=== PATIENT | female | born 1995 | race Two or more races ===

== ENCOUNTER 2024-05-26 07:15 | Emergency (ER) | payer SELFPAY ==
[2024-05-26 07:30] VITALS: BP 107/74; PULSE 74; RESP 18; O2SAT 97
[2024-05-26 07:39] VITALS: BP 107/74; PULSE 76; RESP 16; TEMP 36.3; O2SAT 98; BMI 24.6
--- NOTE | 2024-05-26 07:43 | ED_ITS ---
HPI - General Adult General Date Seen: 05/26/24 Chief complaint: Chest Pain Stated complaint: chest pain Time Seen by Provider: 05/26/24 07:42 History of Present Illness HPI narrative: History is obtained through a [place] librarian specialist iPad service This is a 29-year-old female with history of cholecystectomy (several years ago, per patient report), but otherwise healthy on no long-term medications. No medication allergies. She was awoken from sleep at about 5:00 a.m. this morning with bad pain affecting her upper abdomen in the epigastrium and right upper quadrant also radiating through the back. She was nauseous and vomited 2 times. Emesis was clear. No bloody or coffee-ground emesis. Bowel movements have been normal. No diarrhea. No black or bloody stools. No fever or chills. No trouble breathing. No palpitations. No recent cough. No recent injuries. No new foods. No clear trigger for the pain. No other similar pains in the past or other recent more mild pains. Her notes that she has a history of gastritis. She did not eat much yesterday during the day and then was very hungry yesterday evening so she lot of food. He wonders if she ate too much food in overfilled her stomach or triggered gastritis. She is not currently on any anti acid medications. Related Data Home Medications ?Medication ?Instructions ?Recorded ?Confirmed acetaminophen 325 mg capsule 650 mg PO Q4-6H PRN 05/26/24 05/26/24 Previous Rx's ?Medication ?Instructions ?Recorded omeprazole 40 mg capsule,delayed 40 mg PO DAILY #30 caps 05/26/24 release Allergies Allergy/AdvReac Type Severity Reaction Status Date / Time No Known Drug Allergies Allergy Verified 05/26/24 09:39 [facility] Social History Smoking Status: Never smoker Do you use any of these nicotine containing products: None How often do you have a drink containing alcohol: never How often do you have six or more drinks on one occasion: Never AUDIT-C Alcohol total score: 0 Non-prescribed substance use: denies use Exam Narrative: Exam Narrative: Constitutional: Appears well-developed and well-nourished. Alert. Conversant through [place] librarian specialist iPad. Non toxic. HENT: Head: Atraumatic. Nose: Nose normal. Mouth/Throat: Oral mucosa is clear and moist. no trismus. Eyes: Conjunctivae normal. EOM normal. Pupils equal, round, and reactive to light. No scleral icterus. Neck: Normal range of motion. Neck supple. No tracheal deviation present. No JVD Cardiovascular: Normal rate, regular rhythm. No gallop. No friction rub. No murmur heard. Symmetric radial artery pulses Pulmonary/Chest: Effort normal. No stridor. No respiratory distress. No wheezes. No rales. No rhonchi . No tenderness. Abdominal: Soft. Bowel sounds normal. No distension. No mass. Epigastric and right upper quadrant tenderness. No rebound. No guarding. Musculoskeletal: RUE: Normal range of motion. No tenderness. No deformity LUE: Normal range of motion. No tenderness. No deformity RLE: Normal range of motion. No edema. No tenderness. No deformity LLE: Normal range of motion. No edema. No tenderness. No deformity Neurological: Alert and oriented to person, place, and time. Normal strength. CN II-VII intact. No sensory deficit. GCS eye subscore is 4. GCS verbal subscore is 5. GCS motor subscore is 6. Normal coordination Skin: Skin is warm and dry. No rash noted. No pallor. Normal capillary refill. Psychiatric: Normal mood. Normal affect. Const: Vital Signs, click to edit/add: Vital Signs - 24 hr 05/26/24 07:30 05/26/24 07:39 05/26/24 08:00 Temperature 97.4 F L Pulse Rate [Pulse Oximeter] 74 76 68 Respiratory Rate 18 16 11 L Blood Pressure [Ri ght Upper Arm] 107/74 107/74 98/66 Pulse Oximetry 97 98 97 Oxygen Delivery Me thod Room Air Room Air Room Air 05/26/24 09:30 Temperature Pulse Rate [Pulse Oximeter] 66 Respiratory Rate 16 Blood Pressure [Ri ght Upper Arm] 94/59 L Pulse Oximetry 94 Oxygen Delivery Me thod Room Air Course Vital Signs Vital signs: Initial Vital Signs Pulse Rate 74 05/26/24 07:30 Respiratory Rate 18 05/26/24 07:30 Respiratory Effort Normal, Non-Labored 05/26/24 07:30 Respiratory Depth Normal 05/26/24 07:30 Respiratory Pattern Normal 05/26/24 07:30 Blood Pressure 107/74 05/26/24 07:30 Blood Pressure Mean 85 05/26/24 07:30 Blood Pressure Position Standing 05/26/24 07:30 Pulse Oximetry 97 05/26/24 07:30 Oxygen Delivery Method Room Air 05/26/24 07:30 Vital Signs Pulse Rate 74 05/26/24 07:30 Respiratory Rate 18 05/26/24 07:30 Blood Pressure 107/74 05/26/24 07:30 Pulse Oximetry 97 05/26/24 07:30 Oxygen Delivery Method Room Air 05/26/24 07:30 Temperature 97.4 F L 05/26/24 07:39 Pulse Rate 66 05/26/24 09:30 Respiratory Rate 16 05/26/24 09:30 Blood Pressure 94/59 L 05/26/24 09:30 Pulse Oximetry 94 05/26/24 09:30 Oxygen Delivery Method Room Air 05/26/24 09:30 Medications Administered Medications: Discontinued Medications Generic Name Dose Route Start Last Admin Trade Name Freq PRN Reason Stop Dose Admin Sodium Chloride 1,000 mls @ 1,000 mls/hr 05/26/24 07:45 05/26/24 09:00 0.9 % Sodium Chloride 1000 Ml IV 05/26/24 08:44 Infused .Q1H AUTUMN Infusion Ketorolac Tromethamine 15 mg 05/26/24 07:44 05/26/24 08:07 Ketorolac 15 Mg/Ml Inj IVP 05/26/24 07:45 15 mg ONCE ONE Administration Ondansetron HCl 4 mg 05/26/24 07:44 05/26/24 08:06 Ondansetron 2 Mg/Ml Inj IVP 05/26/24 07:45 4 mg ONCE ONE Administration Medical Decision Making [facility] Narrative Medical decision making narrative: Presented to the Emergency Department with epigastric and upper abdominal pain. The differential diagnosis of abdominal pain includes: Early Appendicitis, Bowel Obstruction, Ulcer, Ischemia, retained common bile duct stone, Diverticulitis, Pancreatitis, UTI, kidney stone, Enteritis/Colitis, amongst many other etiologies. Laboratory testing does not reveal a cause for the patient's pain. CT Imaging is noted to be normal. The exact etiology of the abdominal pain is not clear at this time. She feels much better after meds given here in the ER and now pain is resolved. She is requesting discharge. No life threatening cause or need for emergent surgery or hospital admission is detected today. Will try her on empiric course of Prilosec in case this was gastritis. No evidence for any perforated ulcer, GI bleed, or other severe complication of gastritis. The patient also understands that if they worsen, they should return to the ER right away. I discussed the uncertainty about the diagnosis and answered the patient's questions. Abdominal pain return precautions discussed. She will follow-up with primary care for recheck, unless she worsens, in which case she will come back to the ER right away. Lab Data Labs: Lab Results 05/26/24 05/26/24 Range/Units 07:50 09:00 WBC 7.27 (4.50-11.00) K/uL RBC 4.28 (4.00-5.20) m/uL Hgb 12.4 (12.0-16.0) gm/dL Hct 37.3 (33.0-51.0) % MCV 87 (80-100) fL MCH 29 (26-34) pg MCHC 33 (32-36) gm/dL RDW Coeff of Carloz 12.1 (11.5-15.5) % Plt Count 271 (140-440) K/uL Neut % (Auto) 52.1 (42.0-72.0) % Lymph % (Auto) 36.6 (20-44) % Alfalfa % (Auto) 8.0 (0.0-11.0) % Eos % (Auto) 2.3 (0.0-7.0) % Baso % (Auto) 0.7 (0.0-3.0) % Neut # (Auto) 3.79 (1.7-7.0) K/uL Lymph # (Auto) 2.66 (0.90-2.90) K/uL Alfalfa # (Auto) 0.60 (0.00-0.90) K/UL Eos # (Auto) 0.17 (0.00-0.50) K/uL Baso # (Auto) 0.05 (0.00-0.30) K/uL Abs Immat Gran (auto) 0.02 (0.00-0.30) K/uL Imm/Tot Granulo (auto) 0.3 % Sodium 138 (135-149) mmol/L Potassium 3.5 L (3.6-5.1) mmol/L Chloride 104 (96-114) mmol/L Carbon Dioxide 23 (20-32) mmol/L Anion Gap 11 (7-15) mEq/L BUN 12 (5-24) mg/dL Creatinine 0.4 L (0.5-1.5) mg/dL Estimated Creat Clear 155.18 Estimated GFR 136 ml/min Glucose 106 (60-115) mg/dL Calcium 8.8 (8.4-10.6) mg/dL Total Bilirubin 0.4 (0.1-1.5) mg/dL AST 35 (12-35) U/L ALT 23 (4-35) U/L Alkaline Phosphatase 71 (40-150) U/L Troponin I < 0.01 L (0.01-0.04) ng/mL Total Protein 8.2 (6.0-8.3) g/dL Albumin 4.5 (3.3-5.0) g/dL Lipase 111 (23-300) U/L Urine Color Yellow (Yellow) Urine Appearance Clear (Clear) Urine pH 5.5 (5.0-8.5) Ur Specific [place] 1.010 (1.000-1.030) Urine Protein Negative (Negative) Urine Glucose (UA) Negative (Negative) Urine Ketones Negative (Negative) Urine Blood Negative (Negative) Urine Nitrite Negative (Negative) Urine Bilirubin Negative (Negative) Urine Urobilinogen 0.2 (0.2-1.0) Ur Leukocyte Esterase Negative (Negative) Urine RBC 0-2 (0-2) Urine WBC 0-2 (0-5) Ur Squamous Epith Cells None (None-Few) Urine Bacteria None (None) Urine HCG, Qual Negative (Negative) Ethyl Alcohol < 0.01 L (0.01-0.03) % Imaging Data CT scan - abdomen: Attestation: I have reviewed the pertinent imaging results. Radiologist's impression: IMPRESSION: Normal examination. No visible cause for upper abdominal/epigastric pain. Has been a cholecystectomy and there are no visible complications. ECG Data Attestation: I personally reviewed and interpreted this ECG as follows: Interpretation: Normal sinus rhythm Rate: 73 NC: 178 QRS axis: Normal axis. No pathologic Q-waves. ST segment/T wave: No ST segment elevation or depression QTc: 442 Discharge Plan Discharge Clinical Impression: Abdominal pain, epigastric Patient Disposition: Home, Self-Care Condition: Stable Instructions: Abdominal Pain (ED) Additional Instructions: As we discussed, we suspect your pain is probably being caused by stomach acid b urning the inner lining of your stomach. Please start on the stomach acid medicine once every day to help reduce stomach acid. This may help your pain get better Please recheck with your doctor within the next 3-5 days. If you have more episodes of pain, worsening pain, bloody vomit, bloody or black stools, fever, or any problems, please come back to the ER right away. Prescriptions: New omeprazole 40 mg capsule,delayed release(DR/EC) 40 mg PO DAILY Qty: 30 2RF No Action acetaminophen 325 mg capsule 650 mg PO Q4-6H PRN Follow Up/Referrals: Provider,Not a Local [Primary Care Provider] - Stand Alone Forms: [facility] Info Instructions
--- NOTE | 2024-05-26 07:57 | CRLHL7_ITS ---
For Patients: As a result of the Century Cures Act, medical imaging exams and procedure reports are released immediately into your electronic medical record. You may view this report before your referring provider. If you have questions, please contact your health care provider. INDICATION: Epigastric and abdominal pain. Right upper quadrant pain. Status post cholecystectomy COMPARISON: None TECHNIQUE: CT examination of the abdomen and pelvis was performed following the uneventful intravenous administration of 64 cc of Isovue 370. Thin section axial images were obtained from the lung bases through the pubic symphysis. Oral contrast was not administered. Please note that all CT scans at this facility use dose modulation, iterative reconstruction, and/or weight-based dosing when appropriate to reduce radiation dose to as low as reasonably achievable. FINDINGS: LUNG BASES: The lung bases as visualized appear normal.The heart size is normal at the lung bases. LIVER/BILIARY SYSTEM:The liver is normal in size and configuration. There is no focal mass and there is no intra- or extra hepatic biliary ductal dilatation.There has been a cholecystectomy. No visible complications of a cholecystectomy. ADRENALS: Normal KIDNEYS, URETERS and BLADDER:Prominent renal pelvis bilaterally. These are probably extrarenal pelvis, normal variation. Normal-appearing kidneys. No hydroureter. The bladder appears normal SPLEEN:Normal appearance. PANCREAS: Appears normal. RETROPERITONEUM and MESENTERY: There is no mass, adenopathy or aortic aneurysm. GASTROINTESTINAL SYSTEM: There is no evidence of diverticulitis, colitis, mechanical obstruction, or appendicitis. The small bowel as visualized appears normal. PELVIS: No mass, adenopathy or free fluid. OSSEOUS STRUCTURES and ABDOMINAL WALL: There is an age-appropriate appearance of the osseous structures.No significant abdominal wall defect. OTHER: No free fluid or free air. IMPRESSION: Normal examination. No visible cause for upper abdominal/epigastric pain. Has been a cholecystectomy and there are no visible complications. Please note that all CT scans at this facility use dose modulation, iterative reconstruction, and/or weight-based dosing when appropriate to reduce radiation dose to as low as reasonably achievable. Dictated by Pierce Dangelo MD @ 05/26/2024 10:00:22 AM (Electronically Signed)
[2024-05-26 08:00] VITALS: BP 98/66; PULSE 68; RESP 11; O2SAT 97
[2024-05-26 08:04] LABS: Basophils Absolute Auto 0.05 K/uL (0.00-0.30); Basophils Percent Auto 0.7 % (0.0-3.0); Eosinophils Absolute Auto 0.17 K/uL (0.00-0.50); Eosinophils Percent Auto 2.3 % (0.0-7.0); Hematocrit 37.3 % (33.0-51.0); Hemoglobin* 12.4 gm/dL (12.0-16.0); Immature Granulocytes Abs Auto 0.02 K/uL (0.00-0.30); Immature Granulocytes Pct Auto 0.3 %; Lymphocytes Absolute Auto 2.66 K/uL (0.90-2.90); Lymphocytes Percent Auto 36.6 % (20-44); Mean Corpuscular HGB Conc 33 gm/dL (32-36); Mean Corpuscular Hemoglobin 29 pg (26-34); Mean Corpuscular Volume 87 fL (80-100); Neutrophils Absolute Auto 3.79 K/uL (1.7-7.0); Neutrophils Percent Auto 52.1 % (42.0-72.0); Platelet Count* 271 K/uL (140-440); RDW Coefficient of Variation % 12.1 % (11.5-15.5); Red Blood Count 4.28 m/uL (4.00-5.20); White Blood Count* 7.27 K/uL (4.50-11.00)
[2024-05-26] MEDS: ONDANSETRON 2 MG/ML inj 4 MG IVP (08:06)
[2024-05-26] MEDS: 0.9 % SODIUM CHLORIDE 1000 ml 1,000 ML IV (08:06)
[2024-05-26] MEDS: KETOROLAC 15 MG/ML inj IVP (08:07)
[2024-05-26 08:13] LABS: Slide Review Reflex No
[2024-05-26 08:18] LABS: Albumin* 4.5 g/dL (3.3-5.0); Chloride* 104 mmol/L (96-114)
[2024-05-26 08:19] LABS: Potassium* 3.5 mmol/L (3.6-5.1); Sodium* 138 mmol/L (135-149)
[2024-05-26 08:21] LABS: Alkaline Phosphatase* 71 U/L (40-150); Anion Gap 11 mEq/L (7-15); Aspartate Amino Transferase* 35 U/L (12-35); Bilirubin Total* 0.4 mg/dL (0.1-1.5); Blood Urea Nitrogen* 12 mg/dL (5-24); Carbon Dioxide* 23 mmol/L (20-32); Creatinine* 0.4 mg/dL (0.5-1.5); Est. Creatinine Clearance* 155.18; Estimated Glomerular Filt Rate 136 ml/min; Total Protein* 8.2 g/dL (6.0-8.3)
[2024-05-26 08:22] LABS: Alanine Aminotransferase* 23 U/L (4-35); Calcium* 8.8 mg/dL (8.4-10.6); Glucose* 106 mg/dL (60-115); Lipase* 111 U/L (23-300)
[2024-05-26 08:23] LABS: Ethanol* < 0.01 % (0.01-0.03)
[2024-05-26 08:33] LABS: Troponin I* < 0.01 ng/mL (0.01-0.04)
[2024-05-26 09:14] LABS: Ur HCG Qualitative* Negative (Negative)
[2024-05-26 09:15] LABS: Appearance Urine Clear (Clear); Bilirubin Urine Negative (Negative); Blood Urine Negative (Negative); Color Urine Yellow (Yellow); Glucose Urine Negative (Negative); Ketones Urine Negative (Negative); Leukocyte Esterase Urine Negative (Negative); Nitrite Urine Negative (Negative); Protein Urine Negative (Negative); Urobilinogen Urine 0.2 (0.2-1.0); pH Urine 5.5 (5.0-8.5)
[2024-05-26 09:30] VITALS: BP 94/59; PULSE 66; RESP 16; O2SAT 94
[2024-05-26 09:31] LABS: RBC Urine 0-2 (0-2); WBC Urine 0-2 (0-5)
== END 2024-05-26 11:51 | disposition home or self-care (01) ==
PROVIDERS: Emergency Provider Emergency Medicine
DX: R10.13 Epigastric pain (principal)
CPT/HCPCS: 36415; 74177; 80053; 81001; 81025; 82077; 83690; 84484; 85025; 93005; 99283; 99284; 99285; T1013; J1885; J2405; J7030; Q9967